=== PATIENT | female | born 1995 | race Hispanic/Latino ===

== ENCOUNTER 2019-02-21 09:31 | Outpatient (CLI) | payer OTHER ==
--- NOTE | 2019-02-21 11:37 | ULT ---
OB ULTRASOUND: HISTORY: anatomy. FINDINGS: Exam is limited due to patient's body habitus. A single live intrauterine gestation is seen with measurements corresponding to an estimated gestatio nal age of 21 weeks 2 days and LUIS at 07/02/2019. The estimated weight measures 476 gm or 1 rachel nd and 1 ounce. This corresponds to 72th percentile by Hadlock criteria. measurements are as follows: BPD 4.79 cm, 20 weeks 3 days HC 18.68 cm, 21 weeks 0 days AC 17.09 cm, 22 weeks 0 days FL 3.92 cm, 22 weeks 4 days heart rate measures 137 b.p.m. KEVIN is 13.5 cm. Placenta is anteriorly located without evidenc e of placenta previa. kidneys and lips/nose are not satisfactorily visualized. The bladder, stomach, 4-chamber heart, lateral ventricles, cerebellum, 3-vessel cord, cord insertion, spine, upper no active disease lower extremities are visualized without definite anomalies. IMPRESSION: Single live intrauterine of 21 weeks 2 days estimated gestational age, and estimated date o f delivery at 07/02/2019. POS: OFF
== END 2019-02-21 09:32 | disposition home or self-care (01) ==
LOC: ULT 09:31
PROVIDERS: ATTEND Family Medicine
DX: Z34.92 Encounter for supervision of normal pregnancy, unspecified, second trimester (principal); Z3A.20 20 weeks gestation of pregnancy
CPT/HCPCS: 76805

== ENCOUNTER 2019-06-23 19:15 | Inpatient (IN) | payer OTHER ==
--- NOTE | 2019-06-23 13:10 | HP ---
HISTORY OF PRESENT ILLNESS: This is a 23-year-old [place] female, G3, P2, at 39 weeks gestation with an EDC of being admitted for an elective Cytotec/Pitocin induction. Her course has been uncomplicated. She has had 2 prior vaginal deliveries. PAST MEDICAL HISTORY: None. ALLERGIES: NONE. PAST SURGICAL HISTORY: Spontaneous vaginal delivery x2 and cholecystectomy. FAMILY HISTORY: Unremarkable for any diabetes, cancers, or heart disease. SOCIAL HISTORY: She is , a nonsmoker, nondrinker. Two children. REVIEW OF SYSTEMS: As above. PHYSICAL EXAMINATION: VITAL SIGNS: Stable. Afebrile. Blood pressure 120/82. heart tones 140. GENERAL: No acute distress. HEENT: Clear. HEART: Regular rate and rhythm. LUNGS: Clear. ABDOMEN: Gravid. EXTREMITIES: No edema. LABORATORY DATA: GBS negative. . Hepatitis B negative. HIV negative. Rubella nonimmune. pap normal. Thyroid normal. O positive blood type. RPR negative. GC and Chlamydia negative. ASSESSMENT: 39-week intrauterine . PLAN: 1. Routine L and D orders. 2. . 3. Cytotec/Pitocin induction for Rubella vaccination after postop. Job ID: [id number]
[2019-06-23] MEDS ORDERED: hydrALAZINE 20 MG/ML VIAL SLOW IVP PRN (23:05)
[2019-06-23] MEDS ORDERED: Acetaminophen 500 MG TAB PO PRN (23:05)
[2019-06-23] MEDS ORDERED: Ibuprofen 800 MG TAB PO PRN (23:05)
[2019-06-23] MEDS ORDERED: HYDROcodone/Acetaminophen 5/325 mg Tablet PO PRN (23:05)
[2019-06-23] MEDS ORDERED: Zolpidem Tartrate 5 MG TAB PO PRN (23:05)
[2019-06-23] MEDS ORDERED: Butorphanol Tartrate 1 MG/ML VIAL SLOW IVP PRN (23:05)
[2019-06-23] MEDS ORDERED: Promethazine HCl 25 MG/ML VIAL IM PRN (23:05)
[2019-06-23] MEDS ORDERED: Methylergonovine 0.2 MG/ML VIAL IM PRN (23:05)
[2019-06-23] MEDS ORDERED: Ondansetron PF 4 MG/2 ML Vial IVP PRN (23:05)
[2019-06-23] MEDS ORDERED: Lidocaine 1% (PF) 30 ML VIAL SC PRN (23:05)
[2019-06-23] MEDS ORDERED: NS w/ Oxytocin 10 units 500 ML IV SCH (23:15)
[2019-06-23] MEDS: Lactated Ringer's 1,000 ML IV SCH (23:30)
[2019-06-23 23:44] LABS: Hemoglobin 11.8 g/dL (12.0-16.0); Mean Corpuscular HGB CONC 32.8 g/dL (32.0-36.0); Mean Corpuscular Hemoglobin 27.9 pg (27.0-31.0); Mean Corpuscular Volume 84.9 fL (78.0-98.0); Mean Platelet Volume 8.9 fL (7.4-10.4); Platelet Count 266 thou/uL (130-400); RBC Distribution Width 13.2 % (11.5-14.5); Red Blood Cell (RBC) Count 4.24 mill/uL (4.20-5.40); White Blood Cell (WBC) Count 8.6 thou/uL (4.8-10.8)
[2019-06-23 23:49] VITALS: BMI 42.5
[2019-06-24 00:21] LABS: Syphilis Antibody Nonreactive (Nonreactive); Syphilis Antibody Index 0.04 S/CO (<1.00 Non-Reactive)
[2019-06-24 00:23] LABS: HBSAg Index 0.17 S/CO (0-0.99); Hep B Surf Ag Non-Reactive S/CO (NonReactive)
[2019-06-24] MEDS: Misoprostol 100 MCG TAB VAG SCH ×3 (00:25→08:47)
[2019-06-24] MEDS: Lactated Ringer's 1,000 ML IV SCH (03:21)
[2019-06-24] MEDS: NS / Oxytocin 40 units/1000ml 1,000 ML IV PRN ×2 (04:30→06:15)
--- NOTE | 2019-06-24 04:56 | DN ---
DATE OF PROCEDURE: 06/24/2019 TIME OF SERVICE: 0435 hours. The patient was an induction of labor at term by Dr. Ricardo Shankar. She received 3 Cytotec's and proceeded to complete complete at approximately 0428. Dr. Shankar was called and was on his way to the hospital. The patient proceeded to be complete complete and on the perineum. Essentially at the time of delivery, I was called to the room. As I walked in the room, the patient delivered in a controlled manner by her RN who was present and attended the entire process. The infant was delivered and placed onto the abdomen, was vigorous. Delayed cord clamping was carried out. After delayed cord clamping, placenta was noted to have delivered spontaneously on its own as well. Cord blood sample was obtained. Vagina was inspected and no lacerations were noted. Within 3 to 4 minutes of delivery, Dr. Shankar presented and proceeded to complete the patient's intrapartum care. Job ID: [id number]
--- NOTE | 2019-06-24 06:24 | OP ---
DATE OF PROCEDURE: 06/24/2019 PREOPERATIVE DIAGNOSIS: Term . POSTOPERATIVE DIAGNOSIS: Term . PROCEDURE: Spontaneous vaginal delivery. CO-SURGEON: John Perez MD. ANESTHESIA: Epidural. PROCEDURE: This 23-year-old white [place]ian female, G3, P2 taken to the delivery in incomplete pushing. Dr. Perez was present for the delivery. She had a controlled spontaneous vaginal delivery. The patient did go rapidly from 0 to complete. No lacerations were present. Minimal bleeding present. Uterus firm. No lacerations. ESTIMATED BLOOD LOSS: Per Dr. Perez probably less than 350 mL. Mother and baby did well and will go to the recovery room. Job ID: [id number]
[2019-06-24] MEDS ORDERED: Adacel (T-DAP) 0.5 ML SYRINGE IM ONE (07:22)
[2019-06-24] MEDS ORDERED: Misoprostol 200 MCG TAB VAG PRN (07:22)
[2019-06-24] MEDS ORDERED: Milk Of Magnesia 30 ML UDCUP PO PRN (07:22)
[2019-06-24] MEDS ORDERED: NS / Oxytocin 40 units/1000ml 1,000 ML IV SCH (07:22)
[2019-06-24] MEDS ORDERED: hydrALAZINE 20 MG/ML VIAL SLOW IVP PRN (07:22)
[2019-06-24] MEDS ORDERED: Bisacodyl 10 MG SUPP PR PRN (07:22)
[2019-06-24] MEDS ORDERED: HYDROcodone/Acetaminophen 5/325 mg Tablet PO PRN (07:22)
[2019-06-24] MEDS: Ferrous Sulfate 325 MG TAB PO SCH ×2 (07:45→17:16)
[2019-06-24] MEDS ORDERED: FLU VACC QS2019-20(6MOS UP)/PF 60 MCG/0.5 ML SYRINGE IM ONE (09:00)
[2019-06-24] MEDS: Docusate Calcium (SURFAK) 240 MG CAP PO SCH ×2 (09:20→21:11)
[2019-06-24] MEDS: Ibuprofen 800 MG TAB PO SCH (17:14)
[2019-06-25] MEDS: Ibuprofen 800 MG TAB PO SCH ×2 (00:17→09:34)
[2019-06-25 05:07] VITALS: TEMP 98.6
[2019-06-25 05:57] LABS: Hemoglobin 11.4 g/dL (12.0-16.0)
[2019-06-25] MEDS: Docusate Calcium (SURFAK) 240 MG CAP PO SCH (09:34)
[2019-06-25] MEDS: Ferrous Sulfate 325 MG TAB PO SCH (09:36)
[2019-06-25 10:35] VITALS: BP 110/56
== END 2019-06-25 11:25 | disposition home or self-care (01) | DRG 807 ==
LOC: L&D 22:42 → 3SW 06-24 06:54
PROVIDERS: ADMIT Family Medicine; ATTEND Family Medicine
PROC: 3E033VJ Introduction of Other Hormone into Peripheral Vein, Percutaneous Approach (ICD-10-PCS; principal; 2019-06-24)
PROC: 10E0XZZ Delivery of Products of Conception, External Approach (ICD-10-PCS; 2019-06-24)
DX: O80 Encounter for full-term uncomplicated delivery (principal); Z37.0 Single live birth; Z3A.39 39 weeks gestation of pregnancy
CPT/HCPCS: 36415; 85014; 85018; 85027; 86780; 86850; 86900; 86901; 87340